=== PATIENT | male | born 1985 | race African-American/Black ===

== ENCOUNTER 2018-08-23 19:07 | Emergency (ER) | payer SELFPAY ==
[2018-08-23] MEDS ORDERED: Ibuprofen 200 MG TAB ONE (19:20)
== END 2018-08-23 19:28 | disposition home or self-care (01) ==
LOC: NAV ERS 19:07
DX: M62.830 Muscle spasm of back (principal); F17.210 Nicotine dependence, cigarettes, uncomplicated
CPT/HCPCS: 93005